=== PATIENT | female | born 1980 | race Caucasian/White ===

== ENCOUNTER 2022-11-04 17:54 | Emergency (ER) | payer OTHER ==
[~2022-11-04] VITALS: Ht 167.6 cm; Wt 74.8 kg
--- NOTE | 2022-11-04 18:00 | NUR ---
ASSUMED PATIENT CARE PT AOX4 [facility] 15, BIBA WITH C/O LEFT SHOULDER PAIN. PER PT SHE WAS IN THE SHOWER WHEN SHE WAS COMING OUT SHE SLIPPED AND FELL HITTING HER LEFT SHOULDER ON THE BATHROOM SINK. PT CAME IN A SLING WITH DEFORMATY NOTED TO THE LEFT SHOULDER. PT DENIES CP, SOB, AND DIZZINESS. PT IS RATING A PAIN 10/10
--- NOTE | 2022-11-04 18:01 | NUR ---
ER at bedside examining patient.
[2022-11-04 18:08] VITALS: BP_SYST 141
[2022-11-04] MEDS ORDERED: MORPHINE 4 MG INJ. 4 MG/ML VIAL IVP ONE ×2 (18:30→19:30)
[2022-11-04] MEDS ORDERED: ONDANSETRON HCL 4 MG/2 ML VIAL IVP ONE ×2 (18:30→19:30)
--- NOTE | 2022-11-04 18:34 | NUR ---
XRAY BEING DONE, MEDICATED ORDERED
--- NOTE | 2022-11-04 19:01 | NUR ---
FAMILY AT BEDSIDE
--- NOTE | 2022-11-04 19:32 | NUR ---
pt resting in bed , receiving pain medicine at this time
[2022-11-04] MEDS ORDERED: ONDANSETRON HCL 4 MG/2 ML VIAL ONE (19:33)
--- NOTE | 2022-11-04 19:50 | NUR ---
Pt signs consent for moderate sedation for closed reduction of left shoulder.
[2022-11-04] MEDS ORDERED: METOCLOPRAMIDE HCL 10 MG/2 ML VIAL ONE (19:59)
[2022-11-04] MEDS: METOCLOPRAMIDE HCL 10 MG/2 ML VIAL IVP ONE ×2 (20:02→20:44)
--- NOTE | 2022-11-04 20:02 | NUR ---
Per orders of Dr. Lin, pt placed to prone position with left arm off of side of bed at 90 degree angle. Pt tolerated fair. Upon prone placement, pt c/o dizziness and nausea. Dr. Lin made aware and new order to give pt Reglan 10 mg IVP, but pt requested to not take medication at this time.
--- NOTE | 2022-11-04 20:20 | NUR ---
Pt verbalizes improvement in pain to left shoulder and is able to move left arm. No visual or palpable deformity to left shoulder and no c/o pain with palpation. Dr. Lin notified and at bedside to reassess.
--- NOTE | 2022-11-04 20:30 | NUR ---
Attempted to sit pt up for Dr. Lin to reassess Left shoulder. Pt continues to c/o dizziness. Reglan 10 mg given IVP.
--- NOTE | 2022-11-04 20:40 | NUR ---
Pt report given to JILL Avilez for continuity of care.
[2022-11-04] MEDS ORDERED: NACL 0.9% 1,000 ML IV ONE (22:15)
[2022-11-04 23:18] VITALS: BP_SYST 123
== END 2022-11-05 01:59 | disposition home or self-care (01) ==
LOC: SED 17:54
DX: S43.015A Anterior dislocation of left humerus, initial encounter (principal); Z79.899 Other long term (current) drug therapy; W18.2XXA Fall in (into) shower or empty bathtub, initial encounter; Y93.89 Activity, other specified; Y92.89 Other specified places as the place of occurrence of the external cause; Y99.8 Other external cause status
CPT/HCPCS: 99284; 23650; 96374; 96375; 73030; 73020; 96376; J2765; J2405; J2270